=== PATIENT | female | born 1975 | race African-American/Black ===

== ENCOUNTER 2018-03-18 11:25 | Emergency (ER) | payer BC, OTHER ==
[~2018-03-18] VITALS: Ht 154.9 cm; Wt 63.0 kg
--- NOTE | ~2018-03-18 | EKG ---
[address] [address] ELECTROCARDIOGRAM REPORT Name: LEOBARDO GROVES SOFIE Room #: DEP [facility]#: [id number] Admission: 03/18/18 Attend Phys: Discharge: 03/18/18 Date of : 75 Report #: [id number] THIS REPORT FOR: //name// [facility] ED Test Date: 2018-03-18 Test Time: 11:31:37 Pat Name: LEOBARDO GROVES Department: Room: Gender: F Disability Services Coordinator: AYLIN : 1975 Requested By: Armaan High Order Number: [id number] MD: Saul Walls Measurements Intervals [place] Rate: 105 P: 55 CT: 161 QRS: -8 QRSD: 75 T: 27 QT: 331 QTc: 438 Interpretive Statements Sinus tachycardia Probable left atrial enlargement No previous ECG available for comparison Electronically Signed On 03-19-2018 8:17:36 CDT by Saul Walls [email or web address] <ELECTRONICALLY SIGNED> By: Saul Walls MD 03/19/18 0817 1131 1131 MD CHRIS Dela Cruz
[~2018-03-18 11:25] MED LIST: ALLEGRA-D 12 H1 EAC1 PO; BACTRIM DS TAB1 EACH PO; BENADRYL25 MG PO; EPIPEN 2-P0.3 MG/0.3 IM; PEPCID20 MG PO; PREDNISONE 20 M20 MG PO; TRAMADOL 50 MG50 MG PO; TRIVORA-281 EACH PO; VISTARIL 25 MG25 M1 PO
[2018-03-18] MEDS ORDERED: PREVACID30 MG PO (11:34)
[2018-03-18] MEDS ORDERED: HYDROCODON-ACE1 EAC7 PO (11:35)
[2018-03-18 11:56] LABS: ABSOLUTE NEUTROPHILS 3.9 thou/uL (1.4-8.2); BASOPHILS 1.1 % (0.0-2.0); EOSINOPHILS 0.3 % (0.0-3.0); HEMATOCRIT 42.4 % (37.0-47.0); HEMOGLOBIN 14.9 gm/dL (12.0-15.0); LYMPHOCYTES 38.2 % (24.0-44.0); MCH 31.8 pg (26.0-34.0); MCV 90.8 fL (80.0-100.0); MONOCYTES 9.2 % (1.0-8.0); PLATELET COUNT 333 thou/uL (150-400); POLYS 51.2 % (36.0-66.0); RBC 4.67 mil/uL (4.20-5.00); RDW 12.4 % (10.5-14.5); WBC 7.6 thou/uL (4.0-11.0)
[2018-03-18 12:07] LABS: ANION GAP 12 mmol/L (7-16); APTT 28.2 Seconds (24.5-32.8); BUN 8 mg/dL (7-18); CALCIUM 9.8 mg/dL (8.5-10.1); CHLORIDE 103 mmol/L (98-107); CO2 26 mmol/L (21-32); CREATININE 0.8 mg/dL (0.6-1.0); GLUCOSE 92 mg/dL (74-106); PROTIME 9.9 Seconds (9.3-11.4); SODIUM 141 mmol/L (136-145)
[2018-03-18 12:14] LABS: ALBUMIN 4.2 g/dL (3.4-5.0); SGOT 11 U/L (15-37); SGPT 14 U/L (30-65); TOTAL BILIRUBIN 0.4 mg/dL (<0.1-1.0); TROPONIN-I <0.06 ng/mL (<0.06)
[2018-03-18 13:08] LABS: AMP/METHAMP Negative (Negative); BARBITURATES Negative (Negative); BENZODIAZEPINES Negative (Negative); COCAINE Negative (Negative); METHADONE Negative (Negative); OPIATES Negative (Negative); PCP Negative (Negative)
[2018-03-18 14:27] VITALS: BP 138/96
== END 2018-03-18 14:28 | disposition home or self-care (01) ==
LOC: ER 11:25
PROVIDERS: Emergency Medicine
DX: R00.0 Tachycardia, unspecified (principal); R00.2 Palpitations; Z86.79 Personal history of other diseases of the circulatory system; Z98.890 Other specified postprocedural states

== ENCOUNTER 2020-10-17 16:28 | Inpatient (IN) | payer BC, OTHER ==
[~2020-10-17] VITALS: Ht 154.9 cm; Wt 63.7 kg
--- NOTE | ~2020-10-17 | P ---
[facility] [place] [address] PROCEDURE REPORT Name: LEOBARDO GROVES Room #: 204-P ADM IN M.R.#: [id number] Admission: 10/17/20 Attend Phys: Sergio Rivera MD Discharge: Date of : 75 Report #: [id number] THIS REPORT FOR: cc: Robe Nazario MD, Keninde A. MD Couchonnal,Saul Wan MD ~ DOC #: [id number] Saul Walls MD DATE OF SERVICE: 10/19/2020 PREOPERATIVE DIAGNOSIS: Supraventricular tachycardia. 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 PROCEDURE PERFORMED: 1. SVT ablation -- CPT code 17175. 2. Left atrial pacing recording, CPT code 55494. 3. Program stimulation pacing after IV drug infusion, CPT code 86731. 4. Intracardiac echo, CPT code 17973. 5. The 3D mapping, CPT code 04014. 6. Transseptal puncture, CPT code 12142. BRIEF HISTORY: The patient is a 45-year-old with recurrent SVT, who had a prolonged episode of SVT; EMS arrived, she was going into 25 beats per minute, received IV adenosine with termination of the tachycardia. She is here for EP study and possible ablation. DESCRIPTION OF PROCEDURE: The patient was brought to the EP laboratory in fasting and sedated state, prepped and draped in a sterile fashion. I obtained access to the right femoral vein x4 placing three 8-Hong Konger short sheaths and a 7-Hong Konger short sheath using the modified Seldinger technique. Next, under fluoroscopy, 3 quadripolar catheters were placed at the HRA, His and RV positions, and a decapolar catheter was placed into the coronary sinus for left atrial pacing and recording. A basic EP study was performed. Ventricular pacing was initially performed and this demonstrated that she had a left-sided accessory pathway with earliest conduction occurring at CS 12. An EP study was performed and the patient was in sinus rhythm, sinus cycle length 665 milliseconds, HI interval 145 milliseconds, QRS duration 70 milliseconds, QT interval 365 milliseconds, AH interval 105 milliseconds, and HV interval of 37 milliseconds. Atrial pacing was performed and AV block was noted to be 270 milliseconds and there was no evidence of manifest preexcitation. Therefore, it appeared we were dealing with a concealed accessory pathway. Atrial ERP was noted at 220 [facility] [address] [place] [address] PROCEDURE REPORT Name: LEOBARDO GROVES Room #: 204-P [facility] IN ..#: [id number] Admission: 10/17/20 Attend Phys: Sergio Rivera MD Discharge: Date of : 75 Report #: [id number] milliseconds at a [address] cycle length. Ventricular pacing was performed and the pathway block was noted at 300 milliseconds. A single ventricular extrastimuli were delivered and the pathway effective refractory period was noted at 310 milliseconds at a 430 milliseconds cycle length resulting in VA conduction via the AV node at that point. No SVT could be induced. Isoproterenol was initiated at 2 mcg per minute and aggressive atrial and ventricular pacing maneuvers did not result in SVT. Therefore, I lowered the isoproterenol down to 1 mcg per minute and then at 210 milliseconds at 350 milliseconds from the atrium, the patient went into SVT with a tachycardia cycle length of 245 milliseconds, septal VA time of 123 milliseconds and VA conduction activation consistent with a left-sided accessory pathway. Ventricular entrainment was performed and a V-A-H-V response was demonstrated. A transseptal procedure - Next, I obtained access to the left femoral vein, placing a 9-Hong Konger short sheath. An ICE catheter was placed into the right atrium and a transseptal was performed using an Agilis sheath, and a [facility] needle. This was straightforward. The patient did receive 15,000 units of heparin prior to the transseptal. A NeurologixTouch ThermoCool ablation catheter was placed in the left atrium and I performed an activation map and 3D map of the left atrium while pacing the ventricle and this demonstrated that the pathway was arising from around 2-3 o'clock along the mitral annulus. A couple of times catheter manipulation would result in termination. Three ablation lesions were performed at this site and there was elimination of the pathway during the 3rd ablation lesion at around 7 seconds. VA conduction was now midline. Post-ablation EP study was performed and VA block was now noted to be at around 350 milliseconds with midline and decremental VA conduction. Isoproterenol was reinitiated at 1 mcg per minute. AV block was noted at 270 milliseconds. VA block was noted at 310 milliseconds. Isoproterenol was turned off and ventricular ERP was noted at 10 milliseconds at a [address] cycle length and was now midline and decremental. VA block was noted at 310 milliseconds. AV block was noted at 280 milliseconds and atrial ERP was noted at 230 milliseconds at a [address] cycle length. Aggressive atrial and ventricular pacing maneuvers were performed and no other SVT could be induced and post-ablation VA conduction remained midline and decremental with no return of the pathway. Post-ablation, the patient was in sinus rhythm, sinus cycle length of 575 milliseconds, HI interval 145 milliseconds, QRS duration 75 milliseconds, QT interval 330 milliseconds, AH interval 94 milliseconds, HV interval 36 milliseconds. Using intracardiac ultrasound, I verified there is no pericardial effusion. The patient received systemic protamine and once the ACT was in acceptable range, catheters and sheaths were pulled and hemostasis was obtained. The patient awoke neurologically and hemodynamically intact. No [facility] [address] [place] [address] PROCEDURE REPORT Name: LEOBARDO GROVES Room #: 204-P [facility] IN ..#: [id number] Admission: 10/17/20 Attend Phys: Sergio Rivera MD Discharge: Date of : 75 Report #: [id number] complications. No significant bleeding. CONCLUSION: 1. Successful ablation of a concealed left-sided accessory pathway. 2. Normal SA susie function. 3. Normal AV susie function. 4. Normal His-Purkinje function. 5. No other inducible arrhythmias on or off isoproterenol. Saul Walls MD LFC/JOCELYN By: 1345 0022 Saul Walls MD /nt
--- NOTE | ~2020-10-17 | EMS ---
[facility] [address] [place] [address] EMS Patient Care Report Name: LEOBARDO GROVES Room #: REG JAIMIE Portillo#: [id number] Admission: 10/17/20 Attend Phys: Discharge: Date of : 75 Report #: [id number] THIS REPORT FOR: //name// Report Transmitted: 10/17/2020 17:20 EMS Care Summary [facility] MED-ACT Incident [id number] @ 10/17/2020 15:42 Incident Location [address] [place] [address] Patient COSME GROVES Female, 45 Years 1975 Patient Address [address] [place] [address] Patient History Gastro-Esophageal Reflux Disease (GERD), Patient Allergies Tramadol, Patient Medications Other, Janie, Omeprazole, Chief Complaint SVT Disposition Transported No Lights/[place] Dispatch Reason Heart Problems/AICD Transported To [facility] Narrative EMS was dispatched to a scene of a woman having heart problems. Upon EMS arrival the patient was sitting on a couch, alert conscious and breathing. EMS walked in and started talking to the patient. She advised she was walking up [facility] [address] [place] [address] EMS Patient Care Report Name: LEOBARDO GROVES Room #: REG JAIMIE Portillo#: [id number] Admission: 10/17/20 Attend Phys: Discharge: Date of : 75 Report #: [id number] the stairs from lunch when she became short of breath and noticed her heart rate was very fast. EMS checked the patient's pulse and placed her on the monitor. EMS took a full set of vitals. EMS asked the patient to bare down for a bit to try and slow her heart rate. The patient's heart rate remained the same. EMS established a 18g IV in the left AC. The patient was walked to the cot and secured. EMS then administered 6mg of Adenosine through a 3-way stop cock and immediately flushed it. EMS coached the patient through the process and her breathing. EMS recorded the event on the Zoll monitor. The patient's heart rate slowed to 145 and continued to low even more. The patient was taken to the ambulance and secured. EMS conducted a 12 lead ECG with no ST elevation found. The patient was reassessed and vitals were taken. The patient's vitals remained stable throughout transport. The patient was transported to [facility] for further evaluation. Initial Vitals @16:11P: 111,R: 18,Pain: 0/10,GCS: 15,EtCO2: 0,SpO2: 99,GA Suspected: false @15:58P: 229,R: 18,Pain: 0/10,GCS: 15,SpO2: 96,GA Suspected: false @16:24P: 108,R: 18,Pain: 0/10,GCS: 15,EtCO2: 38,SpO2: 99,GA Suspected: false @16:07P: 116,R: 18,Pain: 0/10,GCS: 15,SpO2: 72,GA Suspected: false @15:57P: 182,R: 18,BP: 123/94,Pain: 0/10,GCS: 15,SpO2: 100,Revised Trauma: 12,GA Suspected: false @16:23P: 118,R: 18,BP: 132/89,Pain: 0/10,GCS: 15,EtCO2: 35,SpO2: 98,Revised Trauma: 12,GA Suspected: false @15:51P: 216,R: 18,Pain: 0/10,GCS: 15,Temp: 98.4F,SpO2: 100,GA Suspected: false Assessments @15:52MENTAL:Person Oriented,Time Oriented,Place Oriented,Event Oriented,SKIN:HEENT:Head/Face: No Abnormalities,Neck/Airway: No Abnormalities,LUNG SOUNDS:General: No Abnormalities,ABDOMEN:General: No Abnormalities,PELVIS//GI:No Abnormalities,EXTREMITIES:Left Arm: No Abnormalities,Right Arm: No Abnormalities,Left Leg: No Abnormalities,Right Leg: No Abnormalities,PULSE:NEURO:No Abnormalities, Impression Cardiac arrhythmia/dysrhythmia Procedures @PTASurgical Mask on PatientResponse: Unchanged@15:52ALS AssessmentResponse: UnchangedSucceeded@15:58Saline Lock 10cc (18 ga) Site: Antecubital-LeftResponse: UnchangedSucceeded@16:02Adenosine - 6 Milligrams (mg) - Intravenous (IV)Response: Improved@16:1112-Lead ECGResponse: UnchangedSucceeded@16:2412-Lead ECGResponse: UnchangedSucceeded@16:16Oxygen FlowRate: 2 Device: CO2 Nasal Cannula Response: UnchangedSucceeded Timeline 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 Patient,Response: Unchanged 15:41,Call Received 15:41,Psap Call 15:42,Dispatched 15:43,En Route 15:47,On Scene 15:51,At Patient 15:51,BP: / M,PULSE: 216,RR: 18 R,SPO2: 100 Ox,ETCO2: ,BG: ,PAIN: 0,GCS: 15, 15:52,ALS Assessment,Response: UnchangedSucceeded, 15:57,BP: 123/94 M,PULSE: 182,RR: 18 R,SPO2: 100 Ox,ETCO2: ,BG: ,PAIN: 0,GCS: 15, 15:58,Saline Lock 10cc 18 ga Site: Antecubital-Left,Response: UnchangedSucceeded, 15:58,BP: / M,PULSE: 229,RR: 18 R,SPO2: 96 Ox,ETCO2: ,BG: ,PAIN: 0,GCS: 15, 16:02,Adenosine - 6 Milligrams (mg) - Intravenous (IV),Response: Improved 16:07,BP: / M,PULSE: 116,RR: 18 R,SPO2: 72 Ox,ETCO2: ,BG: ,PAIN: 0,GCS: 15, 16:11,12-Lead ECG,Response: UnchangedSucceeded, 16:11,BP: / M,PULSE: 111,RR: 18 R,SPO2: 99 Ox,ETCO2: 0 ,BG: ,PAIN: 0,GCS: 15, 16:15,Depart Scene 16:16,Oxygen FlowRate: 2 Device: CO2 Nasal Cannula Response: UnchangedSucceeded, 16:23,BP: 132/89 M,PULSE: 118,RR: 18 R,SPO2: 98 Ox,ETCO2: 35 ,BG: ,PAIN: 0,GCS: 15, 16:24,12-Lead ECG,Response: UnchangedSucceeded, 16:24,BP: / M,PULSE: 108,RR: 18 R,SPO2: 99 Ox,ETCO2: 38 ,BG: ,PAIN: 0,GCS: 15, 16:24,At Destination 16:56,Call Closed Disclaimer v1.1 Copyright 2020 [employer] This EMS Care Summary contains data elements from the applicable legal record (which may be displayed differently). It is designed to provide pertinent information for the following purposes: continuity of care, clinical quality, and state data reporting. The complete legal record is available to ED staff and administrators of the receiving hospital in [employer]'s Patient Tracker. All data is provided "as is."
[~2020-10-17 16:28] MED LIST changes: +HYDROCODON-ACE1 EAC7 PO; +PREVACID30 MG PO
[2020-10-17 16:33] VITALS: BP 128/91
[2020-10-17 16:51] LABS: ABSOLUTE NEUTROPHILS 3.4 thou/uL (1.4-8.2); BASOPHILS 0.6 % (0.0-2.0); EOSINOPHILS 0.5 % (0.0-3.0); HEMATOCRIT 39.1 % (37.0-47.0); HEMOGLOBIN 13.4 gm/dL (12.0-15.0); LYMPHOCYTES 37.6 % (24.0-44.0); MCH 32.3 pg (26.0-34.0); MCHC 34.2 g/dL (28.0-37.0); MCV 94.4 fL (80.0-100.0); MONOCYTES 9.6 % (1.0-8.0); PLATELET COUNT 389 thou/uL (150-400); POLYS 51.7 % (36.0-66.0); RBC 4.15 mil/uL (4.20-5.00); RDW 12.3 % (10.5-14.5); WBC 6.5 thou/uL (4.0-11.0)
[2020-10-17 17:03] LABS: ANION GAP 10 mmol/L (7-16); BUN 8 mg/dL (7-18); CHLORIDE 110 mmol/L (98-107); CO2 26 mmol/L (21-32); CREATININE 0.8 mg/dL (0.6-1.0); GLUCOSE 74 mg/dL (74-106); POTASSIUM 3.5 mmol/L (3.5-5.1); SODIUM 146 mmol/L (136-145)
[2020-10-17 17:13] LABS: ALBUMIN 3.5 g/dL (3.4-5.0); SGOT 14 U/L (15-37); SGPT 12 U/L (14-59); TOTAL BILIRUBIN 0.3 mg/dL (0.2-1.0); TOTAL PROTEIN 7.9 g/dL (6.4-8.2); TROPONIN-I <0.06 ng/mL (<0.06)
[2020-10-17 19:33] LABS: AMP/METHAMP Negative (Negative); BARBITURATES Negative (Negative); BENZODIAZEPINES Negative (Negative); COCAINE Negative (Negative); METHADONE Negative (Negative); OPIATES Negative (Negative); PCP Negative (Negative)
[2020-10-17 20:48] VITALS: BP 119/87
[2020-10-17 21:40] VITALS: BP 124/90
[2020-10-17 21:57] LABS: CHOLESTEROL 136 mg/dL (<200); HDL CHOLESTEROL 45 mg/dL (>40); LDL CHOLESTEROL 77 mg/dL (<100); TRIGLYCERIDE 70 mg/dL (<150); VLDL 14 mg/dL (<40)
[2020-10-17 21:59] LABS: SERUM ASSESSMENT Clear
[2020-10-17 22:01] VITALS: BP 125/89
[2020-10-17] MEDS ORDERED: ALLEGRA ALLERG180 MG PO (23:14)
[2020-10-17] MEDS ORDERED: OMEPRAZOLE40 MG PO (23:14)
[2020-10-17] MEDS ORDERED: TYLENOL PM EX-1 EACH PO (23:25)
[2020-10-17 23:30] VITALS: BP 122/86
--- NOTE | 2020-10-18 01:17 | NUR ---
2151 ARRIVED FROM ER PER CART. PATIENT UP WITH STEADY GAIT. STATES PAIN IS BETTER AFTER THE TYLENOL. ADMISSION PROCESS INITIATED AND COMPLETED. ORIENTED TO ROOM AND FLOOR POLICIES. 2229 VÍCTOR LOPES HERE TO SEE. NO NEW ORDERS. 0100 RESTING QUIETLY WITHOUT PRESENT COMPLAINTS. NPO PAST MIDNIGHT FOR AM STRESS TEST.
[2020-10-18 03:11] LABS: ANION GAP 11 mmol/L (7-16); BUN 8 mg/dL (7-18); CALCIUM 8.7 mg/dL (8.5-10.1); CHLORIDE 109 mmol/L (98-107); CO2 24 mmol/L (21-32); CREATININE 0.8 mg/dL (0.6-1.0); GLUCOSE 97 mg/dL (74-106); POTASSIUM 3.6 mmol/L (3.5-5.1); SODIUM 144 mmol/L (136-145)
[2020-10-18 03:21] LABS: TROPONIN-I <0.06 ng/mL (<0.06)
[2020-10-18 04:20] VITALS: BP 116/81
--- NOTE | 2020-10-18 04:56 | NUR ---
PAIN WENT AWAY PAST TYLENOL LAST NOC. STATES IT IS COMING BACK. TYLENOL GIVEN. UP AD GWENDOLYN IN ROOM WITH STEADY GAIT. NPO FOR AM STRESS TEST. WORKING ON GOALS AND PLAN OF CARE FOR NOC. NO SVT NOTED PER TELEMETRY.
--- NOTE | 2020-10-18 06:45 | EKG ---
[address] [address] ELECTROCARDIOGRAM REPORT Name: LEOBARDO GROVES SOFIE Room #: 204-P ADM IN M.R.#: [id number] Admission: 10/17/20 Attend Phys: Shayy Bassett MD Discharge: Date of : 75 Report #: [id number] [facility] ED Test Date: 2020-10-17 Test Time: 16:34:48 Pat Name: LEOBARDO GROVES Department: Room: 204 Gender: F Wood Heel [employer]ap [employer]ber: elif : 1975 Requested By: Shanice Lynn Order Number: [id number] MD: Mahesh Duncan Measurements Intervals [place] Rate: 106 P: 73 SD: 160 QRS: 56 QRSD: 77 T: 27 QT: 328 QTc: 436 Interpretive Statements Sinus tachycardia Right atrial enlargement Low voltage, extremity leads Compared to ECG 03/18/2018 11:31:37 Low QRS voltage now present Electronically Signed On 10-18-2020 6:44:52 CDT by Mahesh Duncan [email or web address] <ELECTRONICALLY SIGNED> By: Mahesh Duncan MD, [facility] 10/18/20 0644 D: [id number] Mahesh Duncan MD, FACC /EPI
--- NOTE | 2020-10-18 06:45 | EKG ---
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 : 1975 Requested By: Shanice Lynn Order Number: [id number] MD: Mahesh Duncan Measurements Intervals [place] Rate: 89 P: 24 MT: 156 QRS: -11 QRSD: 77 T: 18 QT: 366 QTc: 446 Interpretive Statements Sinus rhythm Borderline low voltage, extremity leads Compared to ECG 10/17/2020 16:34:48 Sinus tachycardia no longer present Atrial abnormality no longer present Electronically Signed On 10-18-2020 6:45:27 CDT by Mahesh Duncan [email or web address] <ELECTRONICALLY SIGNED> By: Mahesh Duncan MD, [facility] 10/18/20 0645 10 10 Mahesh Duncan MD, FACC /EPI
[2020-10-18 07:52] VITALS: BP 110/69
[2020-10-18] MEDS ORDERED: DILTIAZEM ER120 MG PO (07:57)
--- NOTE | 2020-10-18 08:41 | NUR ---
PT IS AXOX4, PLEASANT; C/O OF SOME PAIN BELOW THE L BREAST AND HEADACHE. PT WAS NPO FOR STRESS TEST THIS AM, WHICH WAS CANCELLED. PT IS TO HAVE PROCEDURE WITH DR FRANZ 10/19/20: CATH ABLATION. PT IS UP AD GWENDOLYN TO TOILET, LOW FALL RISKS. ECHO THIS AM. LOW FALL RISKS; NO CONCERNS AT THIS TIME.
--- NOTE | 2020-10-18 10:42 | 2DMMODE ---
[facility] [place] [address] 2 D/M-MODE ECHOCARDIOGRAM Name: LEOBARDO GROVES Room #: 204-P ADM IN M.R.#: [id number] Admission: 10/17/20 Attend Phys: Sergio Rivera MD Discharge: Date of : 75 Report #: [id number] THIS REPORT FOR: cc: Robe Nazario MD, Keninde A. MD Park, Jin S. MD ~ APPROVED REPORT Study performed: 10/18/2020 08:45:15 EXAM: Comprehensive 2D, Doppler, and color-flow Echocardiogram Patient Location: Bedside Room #: 204 Status: routine BSA: 1.60 HR: 77 bpm BP: 110/69 mmHg Rhythm: NSR Other Information Study Quality: Good Indications Arrhythmia SVT 2D Dimensions RVDd: 30.71 mm IVSd: 10.28 (7-11mm) LVOT Diam: 18.21 (18-24mm) LVDd: 38.31 mm PWd: 9.00 (7-11mm) Ascending Ao: 27.94 (22-36mm) LVDs: 24.77 (25-40mm) Left Atrium: 25.89 (27-40mm) Aortic Root: 28.75 mm IVC: 14.00 mm Volumes Left Atrial Volume (Systole) Single Plane 4CH: 31.17 mL Single Plane 2CH: 22.01 mL LA ESV Index: 18.00 mL/m2 Aortic Valve AoV Peak Farhan.: 1.26 m/s AO Peak Gr.: 6.31 mmHg LVOT Max P.93 mmHg LVOT Max V: 1.11 m/s [facility] [address] [place] [address] 2 D/M-MODE ECHOCARDIOGRAM Name: YANELILEOBARDO Room #: 204-P [facility] IN [facility]#: [id number] Admission: 10/17/20 Attend Phys: Sergio Rivera, Discharge: Date of : 75 Report #: [id number] Vmax: 2.30 cm2 Mitral Valve E/A Ratio: 1.1 MV Decel. Time: 197.21 ms MV E Max Farhan.: 0.81 m/s MV A Farhan.: 0.77 m/s MV PHT: 57.19 ms IVRT: 87.66 ms Pulmonary Valve PV Peak Farhan.: 0.87 m/s PV Peak Gr.: 3.03 mmHg Pulmonary Vein P Vein S: 0.56 m/s P Vein A: 0.36 m/s P Vein D: 0.42 m/s P Vein A Dur.: 120.0 msec P Vein S/D Ratio: 1.33 Left Ventricle The left ventricle is normal size. There is normal LV segmental wall motion. There is normal left ventricular wall thickness. Left ventricular systolic function is normal. The left ventricular ejection fraction is within the normal range. LVEF is 60-65%. Right Ventricle The right ventricle is normal size. The right ventricular systolic function is normal. Atria The left atrium size is normal. The right atrium size is normal. Aortic Valve The aortic valve is normal in structure. No aortic regurgitation is present. There is no aortic valvular stenosis. Mitral Valve The mitral valve is normal in structure. Trace mitral regurgitation. No evidence of mitral valve stenosis. Tricuspid Valve The tricuspid valve is normal in structure. There is no tricuspid valve regurgitation noted. Pulmonic Valve The pulmonary valve is normal in structure. There is no pulmonic [facility] [address] [place] [address] 2 D/M-MODE ECHOCARDIOGRAM Name: LEOBARDO GROVES SOFIE Room #: 204-P [facility] IN .R.#: [id number] Admission: 10/17/20 Attend Phys: Sergio Rivera, Discharge: Date of : 75 Report #: [id number] valvular regurgitation. Great Vessels The aortic root is normal in size. IVC is normal in size and collapses >50% with inspiration. Pericardium There is no pericardial effusion. <Conclusion> The left ventricle is normal size. There is normal left ventricular wall thickness. Left ventricular systolic function is normal. The right ventricle is normal size. The left atrium size is normal. The aortic valve is normal in structure. Trace mitral regurgitation. <ELECTRONICALLY SIGNED> By: Guru Delarosa MD 10/18/20 1042 104 104 Guru Delarosa MD /INF
[2020-10-18 11:33] VITALS: BP 108/76
[2020-10-18 15:29] VITALS: BP 103/71
--- NOTE | 2020-10-18 16:00 | EKG ---
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 : 1975 Requested By: Sergio Rivera Order Number: [id number] MD: Mahesh Duncan Measurements Intervals [place] Rate: 86 P: 64 [place]: 158 QRS: -13 QRSD: 74 T: 21 QT: 369 QTc: 442 Interpretive Statements Sinus rhythm Borderline low voltage, extremity leads Compared to ECG 10/17/2020 16:34:48 Sinus tachycardia no longer present Atrial abnormality no longer present Electronically Signed On 10-18-2020 16:00:31 CDT by Mahesh Duncan [email or web address] <ELECTRONICALLY SIGNED> By: Mahesh Duncan MD, [facility] 10/18/20 1600 09 09 Mahesh Duncan MD, [facility] /EPI
[2020-10-18 19:30] VITALS: BP 123/75
[2020-10-19] VITALS (14 sets, daily range): BP systolic 105–124; BP diastolic 68–88
--- NOTE | 2020-10-19 04:52 | NUR ---
SLEPT PART OF SHIFT. HAD MODERATE HARD STOOL LAST NOC AND GOT NAUSEATED AND HAD SOME CHEST PRESSURE. ZOFRAN AND TYLENOL GIVEN WITH NOTED RELIEF PER PATIENT SLEPT PAST. NPO FOR SVT ABLATION TODAY. PERMIT SIGNED BY ARGENIS RN. DENIES PRESENT COMPLAINTS. CONTINUE TO ASSES.
[2020-10-19] MEDS ORDERED: XARELTO20 MG PO (15:42)
--- NOTE | 2020-10-19 15:58 | NUR ---
PT RETURNED FROM PROCEDURE APPROX 1550 BY PACU STAFF.
--- NOTE | 2020-10-19 19:27 | NUR ---
ASSUMED CARE SHIFT CHANGE. ASSESSMENTS CHARTED- NOON ASSESSMENT NOT CHARTED DUE TO PT BEING OFF UNIT IN PROCEDURE. VSS C/O CHEST DISCOMFORT MANAGED WITH PO TYLENOL. BEDREST POST ABLATION. L AND R GROIN SITE CDI, NO EVIDENCE OF HEMATOMAS. DENIES SOB. SR MONITOR, NO SVT SEEN. PLAN FOR HOME IN AM. CONTINUING POC. REPORT PASSED TO TASHI RN.
--- NOTE | 2020-10-20 03:20 | NUR ---
SLEPT MOST OF SHIFT. UP AD GWENDOLYN IN ROOM POST OFF BEDREST FROM PROCEDURE. TELEMETRY SHOWS SR WITHOUT EPISODES OF SVT. DENIES FURTHER COMPLAINTS OF PAIN SINCE PROCEDURE. WORKING ON GOALS AND PLAN OF CARE FOR NOC. PROGRESSING TOWARDS GOALS FOR DISCHARGE TODAY. DENIES COMPLAINTS OF SHORTNESS OF AIR. CONTINUE TO ASSES CLOSELY.
[2020-10-20 04:43] VITALS: BP 115/70
[2020-10-20 07:53] VITALS: BP 102/75
--- NOTE | 2020-10-20 10:06 | NUR ---
PT IS AXOX4, PLEASANT; DENIES PAIN. VSS, AFEBRILE, SR ON MONITOR. DENIES ANY FEELINGS OF PAIN/PALPITATIONS. PT STARTED ON RX XARELTO THIS AM. SCDs IN PLACE DVT PRECAUTION. PT HAS HX OF CONTROL USE. PT IS UP AD GWENDOLYN TO TOILET. POC IS POSS D/C TODAY 10/20/20. AWAITING D/C ORDERS. NO CONCERNS AT THIS TIME. CALLS APPROPRIATELY.
[2020-10-20 11:30] VITALS: BP 103/65
[2020-10-20 12:47] VITALS: BP 103/65
== END 2020-10-20 13:43 | disposition home or self-care (01) | DRG 274 ==
LOC: ER 16:28 → EROBS 20:14 → 2N 20:14
PROVIDERS: Emergency Medicine; Nurse Practitioner Adult Health; Nurse Practitioner Family; ADMIT Internal Medicine; ATTEND Internal Medicine
PROC: 02583ZZ Destruction of Conduction Mechanism, Percutaneous Approach (ICD-10-PCS; principal; 2020-10-19)
PROC: 02K83ZZ Map Conduction Mechanism, Percutaneous Approach (ICD-10-PCS; 2020-10-19)
PROC: 02583ZZ Destruction of Conduction Mechanism, Percutaneous Approach (ICD-10-PCS; 2020-10-19)
DX: I47.1 Supraventricular tachycardia (principal); Z20.822 Contact with and (suspected) exposure to COVID-19; K21.9 Gastro-esophageal reflux disease without esophagitis; Z88.8 Allergy status to other drugs, medicaments and biological substances; Z83.3 Family history of diabetes mellitus; Z82.49 Family history of ischemic heart disease and other diseases of the circulatory system
CPT/HCPCS: 10081; 70005

== ENCOUNTER → 2020-10-23 | Outpatient (CLI) | payer BC, OTHER ==
[~2020-10-23] MED LIST changes: +ALLEGRA ALLERG180 MG PO; +DILTIAZEM ER120 MG PO; +OMEPRAZOLE40 MG PO; +TYLENOL PM EX-1 EACH PO; +XARELTO20 MG PO
== END ==
LOC: SJCVCIMAG 14:05
PROVIDERS: ATTEND Internal Medicine Cardiovascular Disease
DX: I70.202 Unspecified atherosclerosis of native arteries of extremities, left leg (principal); M79.662 Pain in left lower leg; R19.09 Other intra-abdominal and pelvic swelling, mass and lump